=== PATIENT | male | born 1930 | race Caucasian/White ===

== ENCOUNTER 2016-04-11 23:13 | Emergency (ER) | payer MEDICARE ==
[2016-04-11 23:39] VITALS: TEMP 98.6; BMI 29.8
[2016-04-12] MEDS ORDERED: Enoxaparin 1 mg per kg per dose SQ ONE (01:09)
--- NOTE | 2016-04-12 01:12 | EDPRACDOC ---
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 Denies cp , sob, fever, N/V/D, cough, sore throat, chnages in urine or BM. Med hx = prior [place] with CABG, DM, HTN, HDL. Pain Severity: Reports: Mild Injuries/Pain Location: Reports: lower extremity (right knee and lower leg) Reason for Fall: Reports: tripped Loss of Consciousness: no loss of consciousness Associated Symptoms (Fall): Denies: chest pain, lightheadedness, nausea/vomiting Allergies/Adverse Reactions: Allergies Penicillins Allergy (Verified 04/11/16 23:38) Unknown Home Medications: Ambulatory Orders Aspirin [Chani Aspirin] 325 mg PO DAILY 03/25/12 Metoprolol Tartrate [Lopressor] 12.5 mg PO BID 03/25/12 Sennosides/Docusate Sodium [Docusate Sodium-Sennosides Tab] 2 each PO BID PRN Simvastatin 40 mg PO QHS 03/25/12 Furosemide [Lasix] 20 mg PO .Q48H W/POTASSIUM 07/26/14 Metformin HCl [Metformin HCl ER] 1,000 mg PO BID 07/26/14 Potassium Chloride 20 meq PO .Q48H W/LASIX 07/26/14 Glimepiride [Amaryl] 2 mg PO DAILY #30 tab 06/30/15 Omeprazole [Prilosec] 20 mg PO BID #60 cap 06/30/15 ED Past Medical History - History Reviewed Yes Nurses notes reviewed and agree except as marked - Patient Medical History Cardiac History: Reports: Atrial Fibrillation, Hypertension, Congestive Heart Failure, Heart Attack, Cardiac Catheterization (with stents), CABG, Hypercholesterolemia GI/ History: Reports: Kidney Stones Systemic History: Reports: Diabetes Surgical History: Reports: Cholecystectomy, CABG, Cardiac Catheterization (with stents) - Family Medical History Reports: Hypertension (mom), Cancer (mom had brain tumor, sister had lung ca), Cardiac Disorders (dad). Denies: Diabetes, Stroke - Social Medical History Smoking Status: Former smoker EDM Review of Systems - Review of Systems ROS Negative Except as Marked: Yes All systems reviewed and were negative except as marked Musculoskeletal: Knee (right knee pain), Leg (right lower leg swelling) - Physical Exam Constitutional: No apparent distress, Alert Oriented to: Time, Person, Place Last recorded Vital Signs: Last Vital Signs Temp 98.6 F 04/11/16 23:35 Pulse 76 04/11/16 23:46 Resp 20 04/11/16 23:46 BP 151/56 L 04/11/16 23:46 Pulse Ox 96 04/11/16 23:46 Oxygen Pulse Oxygen Saturation 96 O2 Device Room Air Oxygen Flow Rate Fraction of Inspired Oxygen ( 92 FIO2) - HEENT Head: Normal Eye Exam: negative: Conjunctival Injection, Scleral Icterus Oropharynx: negative: Drooling TMJ: Normal Nose: No Symptoms Reported Neck: Normal - Respiratory/Cardiovascular Respiratory: Normal - CTA Cardiovascular: Normal - GI Tenderness: Non tender - Musculoskeletal Back: Normal Extremities: Pedal Edema (right lower leg), Pedal Pulse (right) - Integumentary Skin: Normal - Neurologic Mood Description: Normal Thought: Coherent Perception: Normal ED Injury/Fall Exam - Physical Exam Head Injury: no evidence of injury Extremity Exam: joint effusion, pain with movement, pedal edema, tenderness Skin: Normal - Pomeroy Coma Score Best Eye Response (Pomeroy): (4) open spontaneously Best Verbal Response (Pomeroy): (5) oriented Best Motor Response (Pomeroy): (6) obeys commands Melvin Total: 15 - Results 04/12/16 01:27 04/12/16 01:27 - Diagnostic Imaging Knee Image interpreted by: Radiologist EXAM: RIGHT KNEE - 1-2 VIEW COMPARISON: None. FINDINGS: No definite acute fracture or dislocation. A linear lucency seen on the frontal projection through the distal femoral diaphysis likely represents a vascular groove and less likely a nondisplaced cortical fracture. CT may provide better evaluation if there is high clinical concern for fracture. There is severe osteoarthritic changes of the knee with tricompartmental narrowing. Small suprapatellar effusion. There is diffuse subcutaneous soft tissue thickening and edema. IMPRESSION: No acute fracture or dislocation. Electronically Signed By: Nicola Carrasquillo M.D. On: 04/12/2016 01:26 Foot Image interpreted by: Radiologist EXAM: RIGHT FOOT COMPLETE - 3+ VIEW COMPARISON: None. FINDINGS: No acute fracture or dislocation. There is diffuse soft tissue swelling of the midfoot. No radiopaque foreign object. IMPRESSION: No acute fracture or dislocation. Electronically Signed By: Nicola Carrasquillo M.D. On: 04/12/2016 01:23 Decision Time to Discharge: 01:18 - Departure Disposition: Home Condition: Stable Final Diagnosis: Right leg swelling Right knee pain Qualifiers: Chronicity: acute Qualified Code(s): M25.561 - Pain in right knee Instructions: Leg Edema (ED) Education/Counseling Given To: Patient Education/Counseling Given Regarding: Diagnosis, Treatment, Prognosis, Follow Up Referrals: James Gómez II, MD [Staff Physician] - One Week Prescriptions: No Action Aspirin [Chani Aspirin] 325 mg PO DAILY Sennosides/Docusate Sodium [Docusate Sodium-Sennosides Tab] 2 each PO BID PRN PRN Reason: Constipation Simvastatin 40 mg PO QHS Metoprolol Tartrate [Lopressor] 12.5 mg PO BID Metformin HCl [Metformin HCl ER] 1,000 mg PO BID Furosemide [Lasix] 20 mg PO .Q48H W/POTASSIUM Potassium Chloride 20 meq PO .Q48H W/LASIX Glimepiride [Amaryl] 2 mg PO DAILY #30 tab Omeprazole [Prilosec] 20 mg PO BID #60 cap Additional Instructions: Return to ED at 7:30 am tomorrow morning for doppler ultrasound of right lower leg. Return earlier if you have any new or worsening symptoms.
--- NOTE | 2016-04-12 01:25 | DIRPT ---
CLINICAL DATA: 86-year-old male with fall and right hip pain. EXAM: RIGHT FOOT COMPLETE - 3+ VIEW COMPARISON: None. FINDINGS: No acute fracture or dislocation. There is diffuse soft tissue swelling of the midfoot. No radiopaque foreign object. IMPRESSION: No acute fracture or dislocation. Electronically Signed By: Nicola Carrasquillo M.D. On: 04/12/2016 01:23
--- NOTE | 2016-04-12 01:28 | DIRPT ---
CLINICAL DATA: 86-year-old male with fall EXAM: RIGHT KNEE - 1-2 VIEW COMPARISON: None. FINDINGS: No definite acute fracture or dislocation. A linear lucency seen on the frontal projection through the distal femoral diaphysis likely represents a vascular groove and less likely a nondisplaced cortical fracture. CT may provide better evaluation if there is high clinical concern for fracture. There is severe osteoarthritic changes of the knee with tricompartmental narrowing. Small suprapatellar effusion. There is diffuse subcutaneous soft tissue thickening and edema. IMPRESSION: No acute fracture or dislocation. Electronically Signed By: Nicola Carrasquillo M.D. On: 04/12/2016 01:26
[2016-04-12 01:41] LABS: AUTOMATED BASOPHIL 1.1 % (0-2); AUTOMATED EOSINOPHIL 3.7 % (0-5); AUTOMATED LYMPH 22.2 % (17-44); AUTOMATED MONOCYTE 12.9 % (3-10); AUTOMATED NEUTROPHIL 60.1 % (45-76); MPV 8.2 fL (7.4-10.4)
[2016-04-12 01:46] LABS: BLOOD UREA NITROGEN 22 MG/DL (9-20); CALC CORRECTED 9.4 MG/DL (8.4-10.2); CALCIUM 9.2 MG/DL (8.4-10.2); CALCULATED OSMOLALITY 275 MOs/Kg (270-290); CHLORIDE 102 mEq/L (98-107); GLUCOSE 250 mg/dL (70-99); SODIUM LEVEL 137 mEq/L (137-146); TOTAL PROTEIN 6.2 G/DL (6.3-8.2)
[2016-04-12] MEDS ORDERED: ENOXAPARIN 80 MG/0.8 ML PFS SQ ONE (02:00)
[2016-04-12 02:23] VITALS: BP 139/65; PULSE 73
== END 2016-04-12 02:16 | disposition home or self-care (01) ==
LOC: ED 23:13
DX: M25.561 Pain in right knee (principal); M79.89 Other specified soft tissue disorders
CPT/HCPCS: 36415; 73560; 73630; 80053; 85025; 96372; 99283; J1650

== ENCOUNTER 2016-04-12 10:21 | Emergency (ER) | payer MEDICARE ==
[2016-04-12 10:44] VITALS: TEMP 98.1; BMI 31.8
--- NOTE | 2016-04-12 13:52 | DIRPT ---
CLINICAL DATA: 86-year-old male with a history of right lower extremity pain and edema. EXAM: RIGHT LOWER EXTREMITY VENOUS DOPPLER ULTRASOUND TECHNIQUE: Oliva-scale sonography with graded compression, as well as color Doppler and duplex ultrasound were performed to evaluate the lower extremity deep venous systems from the level of the common femoral vein and including the common femoral, femoral, profunda femoral, popliteal and calf veins including the posterior tibial, peroneal and gastrocnemius veins when visible. The superficial great saphenous vein was also interrogated. Spectral Doppler was utilized to evaluate flow at rest and with distal augmentation maneuvers in the common femoral, femoral and popliteal veins. COMPARISON: None. FINDINGS: Contralateral Common Femoral Vein: Respiratory phasicity is normal and symmetric with the symptomatic side. No evidence of thrombus. Normal compressibility. Common Femoral Vein: No evidence of thrombus. Normal compressibility, respiratory phasicity and response to augmentation. Saphenofemoral Junction: No evidence of thrombus. Normal compressibility and flow on color Doppler imaging. Profunda Femoral Vein: No evidence of thrombus. Normal compressibility and flow on color Doppler imaging. Femoral Vein: No evidence of thrombus. Normal compressibility, respiratory phasicity and response to augmentation. Popliteal Vein: No evidence of thrombus. Normal compressibility, respiratory phasicity and response to augmentation. Calf Veins: No evidence of thrombus. Normal compressibility and flow on color Doppler imaging. Superficial Great Saphenous Vein: Short-segment thrombus of the distal great saphenous vein above the knee. Other Findings: Edema of the right lower extremity. IMPRESSION: Sonographic survey of the right lower extremity negative for DVT. Short-segment thrombosis of the great saphenous vein just above the knee. This may represent superficial thrombophlebitis. Edema of the right lower extremity. Signed, Edinson Malcolm DO [facility] Electronically Signed By: Edinson Malcolm D.O. On: 04/12/2016 13:50
--- NOTE | 2016-04-12 14:11 | EDPRACDOC ---
- General Information Chief Complaint: Lower Extremity Injury Stated Complaint: RT LEG SWOLLEN Time Seen by Provider: 04/12/16 11:26 Information Source: Patient Home Medications: Home Medications Aspirin [Chani Aspirin] 325 mg PO DAILY 03/25/12 Metoprolol Tartrate [Lopressor] 12.5 mg PO BID 03/25/12 Sennosides/Docusate Sodium [Docusate Sodium-Sennosides Tab] 2 each PO BID PRN Simvastatin 40 mg PO QHS 03/25/12 Furosemide [Lasix] 20 mg PO .Q48H W/POTASSIUM 07/26/14 Metformin HCl [Metformin HCl ER] 1,000 mg PO BID 07/26/14 Potassium Chloride 20 meq PO .Q48H W/LASIX 07/26/14 Glimepiride [Amaryl] 2 mg PO DAILY #30 tab 06/30/15 Omeprazole [Prilosec] 20 mg PO BID #60 cap 06/30/15 Cephalexin Monohydrate [Keflex] 500 mg PO Q8H #30 cap 04/12/16 Allergies/Adverse Reactions: Allergies Allergy/AdvReac Type Severity Reaction Status Date / Time Penicillins Allergy Unknown Verified 04/12/16 10:44 - History of Present Illness Onset: 1 day HPI: PT PRESENTS WITH RIGHT LOWER EXTREMITY PAIN AND SWELLING. WAS SEEN IN ER LAST NIGHT FOR SAME AND HE RETURNS TODAY TO OBTAIN ULTRASOUND OF RIGHT LEG WHICH WAS UNAVAILABLE LAST NIGHT. Circumstances: Reports: Fall Associated Signs & Symptoms: Reports: Abrasion, Bruising Pain In: Reports: Leg, Thigh ED Past Medical History - History Reviewed Yes Nurses notes reviewed and agree except as marked - Patient Medical History Cardiac History: Reports: Atrial Fibrillation, Hypertension, Congestive Heart Failure, Heart Attack, Cardiac Catheterization (with stents), CABG, Hypercholesterolemia GI/ History: Reports: Kidney Stones Psychological History: Denies: Depression Systemic History: Reports: Diabetes Surgical History: Reports: Cholecystectomy, CABG, Cardiac Catheterization (with stents) - Family Medical History Reports: Hypertension (mom), Cancer (mom had brain tumor, sister had lung ca), Cardiac Disorders (dad). Denies: Diabetes, Stroke - Social Medical History Smoking Status: Former smoker Lives In: Home EDM Review of Systems - Review of Systems ROS Negative Except as Marked: Yes All systems reviewed and were negative except as marked Cardiovascular: negative: Chest Pain - Physical Exam Constitutional: Alert Oriented to: Time, Person, Place Last recorded Vital Signs: Last Vital Signs Temp 98.1 F 04/12/16 10:41 Pulse 84 04/12/16 13:35 Resp 18 04/12/16 13:35 BP 147/64 04/12/16 13:35 Pulse Ox 89 L 04/12/16 13:35 Oxygen Pulse Oxygen Saturation 89 O2 Device Room Air Oxygen Flow Rate Fraction of Inspired Oxygen ( FIO2) - HEENT Head: negative: Deformity, Laceration Eye Exam: negative: Conjunctival Injection, Pale Conjunctiva Oropharynx: negative: Membranes Dry Neck: negative: Limited ROM - Respiratory/Cardiovascular Respiratory: Normal - CTA. negative: Accessory Muscle Use, Diminished, Tachypnea Cardiovascular: negative: Bradycardia, Tachycardia, Irregular - Integumentary Skin: Warm, Dry - Neurologic Memory Impaired: Normal Motor Function: Normal Mood Description: Appropriate Thought: Coherent Perception: Normal ED Low Extremities Phys Exam - Thigh Right Thigh Symptoms: Swelling, Mild Tenderness. negative: Deformity - Lower Leg Right Lower Leg Symptoms: Swelling, Mild Tenderness. negative: Deformity - Deficits Deficits: None Decision Time to Discharge: 14:10 - Departure Yes I personally saw and evaluated the patient. Disposition: Home Condition: Stable Final Diagnosis: Thrombophlebitis Instructions: RICE Therapy (ED), Superficial Thrombophlebitis (ED) Education/Counseling Given To: Patient, Family Member Education/Counseling Given Regarding: Diagnosis, Treatment, Prognosis, Follow Up Referrals: None,No Provider [Primary Care Provider] - Call for Appointment Prescriptions: New Cephalexin Monohydrate [Keflex] 500 mg PO Q8H #30 cap Continue Aspirin [Chani Aspirin] 325 mg PO DAILY Sennosides/Docusate Sodium [Docusate Sodium-Sennosides Tab] 2 each PO BID PRN PRN Reason: Constipation Simvastatin 40 mg PO QHS Metoprolol Tartrate [Lopressor] 12.5 mg PO BID Metformin HCl [Metformin HCl ER] 1,000 mg PO BID Furosemide [Lasix] 20 mg PO .Q48H W/POTASSIUM Potassium Chloride 20 meq PO .Q48H W/LASIX Glimepiride [Amaryl] 2 mg PO DAILY #30 tab Omeprazole [Prilosec] 20 mg PO BID #60 cap
[2016-04-12 14:43] VITALS: BP 116/64; PULSE 64
== END 2016-04-12 14:41 | disposition home or self-care (01) ==
LOC: ED 10:21
DX: I80.9 Phlebitis and thrombophlebitis of unspecified site (principal)
CPT/HCPCS: 99283